=== PATIENT | male | born 1960 | race Caucasian/White ===

== ENCOUNTER → 2017-11-30 | Outpatient (CLI) | payer BC ==
[~2017-11-30] MED LIST: ASPI81EC PO; NIFE90ER PO
[2017-11-30 13:46] LABS: Protein, Urine Random <5.0 mg/dL (0.0-11.9)
== END | disposition home or self-care (01) ==
LOC: OLS 09:05
PROVIDERS: Internal Medicine
DX: N18.3 Chronic kidney disease, stage 3 (moderate) (principal)
CPT/HCPCS: 82570; 84156

== ENCOUNTER 2023-01-12 08:25 | Day surgery (SDC) | payer BC ==
[~2023-01-12] VITALS: Ht 177.8 cm; Wt 102.1 kg
[~2023-01-12 08:25] MED LIST changes: +FOLI1 PO; +LOSA50 PO; +MULVITA PO; +SPIR25 PO; +VITAMIN D33000 UNIT PO
--- NOTE | 2023-01-12 09:02 | NUR ---
[facility] in [facility] warming gown applied. Patient states colon prep results clear. History, Chart, Medications and Allergies reviewed before start of procedure.Lungs clear T/O to Auscultation. Patient confirms NPO status and agrees with scheduled surgery. Pre-Op teaching done. Pt verbalizes understanding. Patient States Post-Procedure ride home has been arranged.
--- NOTE | 2023-01-12 09:21 | NUR ---
01/12/23 0921 Maria Del Carmen Dang WITH DR. ONEAL, SEE ANESTHESIA RECORDS.
--- NOTE | 2023-01-12 10:28 | NUR ---
PT ALERT AND ORIENTED P PROCEDURE. DENIES NAUSEA OR ABD PAIN. GIVEN PO FLUIDS, TOLERATES S DIFFICULTY. MD AT BEDSIDE TO DISCUSS FINDINGS, NO QUESTIONS. GIVEN DC INSTRUCTIONS, VERBALIZES AN UNDERSTANDING. QUESTIONS ANSWERED BY RN. IV DC'D, CATH INTACT AND PRESSURE DRESSING APPLIED. PT DRESSED S DIFFICULTY. TRANSFERS TO C STEADY GAIT. OTD IN NAD VIA ESCORT BY VOLUNTEER AND SAFE RIDE HOME.
== END 2023-01-12 22:42 | disposition home or self-care (01) ==
LOC: ORSCMMR 08:25 → ORD 09:15 → ORSCMMR 09:15
PROVIDERS: Internal Medicine Gastroenterology
PROC: 0DBL8ZX Excision of Transverse Colon, Via Natural or Artificial Opening Endoscopic, Diagnostic (ICD-10-PCS; principal; 2023-01-12 09:15)
PROC: 0DBN8ZX Excision of Sigmoid Colon, Via Natural or Artificial Opening Endoscopic, Diagnostic (ICD-10-PCS; principal; 2023-01-12 09:15)
PROC: 0DBM8ZX Excision of Descending Colon, Via Natural or Artificial Opening Endoscopic, Diagnostic (ICD-10-PCS; principal; 2023-01-12 09:15)
DX: Z12.11 Encounter for screening for malignant neoplasm of colon (principal); D12.3 Benign neoplasm of transverse colon; K63.5 Polyp of colon; G47.33 Obstructive sleep apnea (adult) (pediatric); I12.9 Hypertensive chronic kidney disease with stage 1 through stage 4 chronic kidney disease, or unspecified chronic kidney disease; N18.9 Chronic kidney disease, unspecified; Z79.82 Long term (current) use of aspirin; Z79.899 Other long term (current) drug therapy
CPT/HCPCS: 88305; J2704; J7120